=== PATIENT | male | born 1950 | race Caucasian/White ===

== ENCOUNTER 2017-11-02 16:01 | Emergency (ER) | payer MEDICARE ==
--- NOTE | 2017-11-02 16:22 | ED ---
Complex/Multi-Sys Presentation - HPI Summary HPI Summary: This is scribe Cristian Pratt documenting for attending Vinh Lee MD. A 66 y/o male ANN accompanied by family presents to ED c/o low blood sugar. In the ED room, the patient has a pulse of 104 BPM, O2 saturation of 96% and blood pressure of 150/89. Currently, the patient is feeling better. According to the patient, all he remembers is that his blood-glucose was low and remember EMS bringing him here to [facility] [place] [facility] ED. He does recall however, getting up in the morning and eating. He also remembers eating lunch and can recall the meal he had. He also noted that he takes insulin at night and recalled his blood-glucose being 120 this morning. Pt denies any congestion, urinary symptoms, cough or any appetite changes. It was noted by family that patient had recent scope down his throat which revealed pollops and he was put on antibiotics for something bacterial approximately 1 month ago. It was additionally noted that the patient wasd dry heaving, had abdominal pain and sleep apnea this morning. PMHx of DM and gastroenteritis. I, Dr. Lee, personally performed the services described in this documentation as scribed in my presence and it is both accurate and complete. - History Of Current Complaint Time Seen by Provider: 11/02/17 16:14 Hx Obtained From: Patient Onset/Duration: Sudden Onset, Lasting Hours, Still Present Timing: Constant Severity Currently: None Location: Negative Aggravating Factor(s): NOTHING Alleviating Factor(s): NOTHING Associated Signs And Symptoms: Positive: Abdominal Pain - Allergies/Home Medications Allergies/Adverse Reactions: Allergies Allergy/AdvReac Type Severity Reaction Status Date / Time No Known Allergies Allergy Verified 11/02/17 16:28 Home Medications: Home Medications Aspirin EC TAB* [Ecotrin EC Low Dose 81 MG*] 81 mg PO DAILY 11/02/17 [History Confirmed 11/02/17] Gabapentin TAB(NF) [Neurontin 600 mg TAB(NF)] 600 mg PO TID 11/02/17 [History Confirmed 11/02/17] Glucosamine Sulfate 500 mg PO TID 11/02/17 [History Confirmed 11/02/17] HYDROcodone/ACETAMIN 5-325 MG* [[place] 5-325 TAB*] 1 - 2 tab PO Q4H PRN 11/02/17 [History Confirmed 11/02/17] Lisinopril TAB* [Prinivil TAB*] 10 mg PO DAILY 11/02/17 [History Confirmed 11/02] Pioglitazone HCl [Actos] 45 mg PO DAILY 11/02/17 [History Confirmed 11/02/17] Simvastatin (NF) [Zocor (NF)] 80 mg PO DAILY 11/02/17 [History Confirmed ] glipiZIDE [Glipizide ER] 5 mg PO DAILY 11/02/17 [History Confirmed 11/02/17] glipiZIDE [Glipizide ER] 10 mg PO DAILY 11/02/17 [History Confirmed 11/02/17] metFORMIN* [Glucophage 1000 MG TAB *] 1,000 mg PO BEDTIME 11/02/17 [History Confirmed 11/02/17] metFORMIN* [Glucophage 1000 MG TAB *] 1,500 mg PO QAM 11/02/17 [History Confirmed 11/02/17] PMH/Surg Hx/FS Hx/Imm Hx Endocrine/Hematology History: Reports: Hx Diabetes Denies: Hx Thyroid Disease Cardiovascular History: Reports: Hx Hypercholesterolemia, Hx Hypertension Denies: Hx Pacemaker/ICD, Hx Peripheral Vascular Disease GI History: Reports: Hx Gastroesophageal Reflux Disease Musculoskeletal History: Reports: Hx Arthritis - knees, back, Hx Back Problems Denies: Hx Osteoporosis Sensory History: Reports: Hx Contacts or Glasses Denies: Hx Cataracts, Hx Glaucoma, Hx Hearing Aid Opthamlomology History: Reports: Hx Contacts or Glasses Denies: Hx Cataracts, Hx Glaucoma Neurological History: Reports: Other Neuro Impairments/Disorders - PAIN CLINIC PT Denies: Hx Headaches, Hx Seizures, Hx Transient Ischemic Attacks (TIA) Psychiatric History: Denies: Hx Anxiety, Hx Depression, Hx Panic Disorder - Surgical History Surgery Procedure, Year, and Place: HERNIA, BONE SPUR NECK; Tonsillectomy - Family History Known Family History: Positive: Diabetes - Social History Alcohol Use: None Alcohol Amount: had a beer at [place] Substance Use Type: Reports: None Substance Use Comment - Amount & Last Used: jorge albertoco Smoking Status (MU): Former Smoker Type: Cigarettes Have You Smoked in the Last Year: No Review of Systems Positive: Other - POSITIVE: Low blood-glucose Positive: Abdominal Pain, Vomiting - Dry heaving. All Other Systems Reviewed And Are Negative: Yes Physical Exam - Summary Physical Exam Summary: Appearance: The patient is well-nourished in no acute distress and in no acute pain. Skin: The skin is warm and dry and skin color reflects adequate perfusion. HEENT: The head is normocephalic and atraumatic. The pupils are equal and reactive. The conjunctivae are clear and without drainage. Nares are patent and without drainage. Mouth reveals moist mucous membranes and the throat is without erythema and exudate. The external ears are intact. The ear canals are patent and without drainage. The tympanic membranes are intact. Neck: The neck is supple with full range of motion and non-tender. There are no carotid bruits. There is no neck vein distension. Respiratory: Chest is non-tender. Lungs are clear to auscultation and breath sounds are symmetrical and equal. Cardiovascular: Heart is regular rate and rhythm. There is no murmur or rub auscultated. There is no peripheral edema and pulses are symmetrical and equal. Abdomen: The abdomen is soft and non-tender. There are normal bowel sounds heard in all four quadrants and there is no organomegaly palpated. Musculoskeletal: There is no back tenderness noted. Extremities are non-tender with full range of motion. There is good capillary refill. Pedal edema on both ankles. Neurological: Patient is alert and oriented to person, place and time. The patient has symmetrical motor strength in all four extremities. Cranial nerves are grossly intact. Deep tendon reflexes are symmetrical and equal in all four extremities. Psychiatric: The patient has an appropriate affect and does not exhibit any anxiety or depression. Triage Information Reviewed: Yes Vital Signs Reviewed: Yes Diagnostics - Laboratory Result Diagrams: 11/02/17 16:53 11/02/17 16:53 Lab Statement: Any lab studies that have been ordered have been reviewed, and results considered in the medical decision making process. - Radiology CXR Radiology Interpretation Completed By: Radiologist - NO ACTIVE DISEASE. ED physician reviewed this radiology report. - EKG 1626 Cardiac Rate: Tachycardia - 105 BPM EKG Rhythm: Sinus Tachycardia Complex Multi-Symp Course/Dx Course Of Treatment: Mr. Reilly presented after losing consciousness at home. His felt that he was in pain as he was writhing around gripping his stomach. The ambulance found his blood sugar to be quite low and gave him an amp of D50 which resolved all his symptomatology. He was observed here, had a meal and had normal vital signs, labs and monitor. - Diagnoses Provider Diagnoses: Hypoglycemia Discharge - Sign-Out/Discharge Documenting (check all that apply): Patient Departure - DISCHARGE - Discharge Plan Condition: Stable Disposition: HOME Patient Education Materials: What to Do if Your Blood Sugar is Low (ED), How to Check your Blood Sugar (ED) Referrals: Francisco Javier Delarosa MD [Primary Care Provider] - 3 Days Additional Instructions: FOLLOW UP WITH PRIMARY CARE IN 2-3 DAYS. RETURN TO ED FOR ANY NEW OR WORSENING SYMPTOMS. - Billing Disposition and Condition Condition: STABLE Disposition: Home
--- NOTE | 2017-11-02 16:50 | RAD ---
INDICATION: Hypoglycemia COMPARISON: None TECHNIQUE: An AP portable view obtained at 1638 hours is submitted. FINDINGS: Bones/Soft Tissues: There are no acute bony findings. Cardiomediastinal: The cardiomediastinal silhouette is normal. Lungs: There are no infiltrates. Pleura: There are no pleural effusions. Other: None IMPRESSION: NO ACTIVE DISEASE.
[2017-11-02 17:05] LABS: ABS Basophils 0 10^3/ul (0-0.2); ABS Eosinophils 0.1 10^3/ul (0-0.6); ABS Lymphocytes 0.9 10^3/ul (1.0-4.8); ABS Monocytes 0.4 10^3/ul (0-0.8); ABS Neutrophils 4.1 10^3/ul (1.5-7.7); ABS Nucleated RBC 0 10^3/ul; Eosinophil % 2.2 % (0-6); Hematocrit 36 % (42-52); Hemoglobin 11.8 g/dl (14.0-18.0); Mean Corpuscular HGB Conc 32 g/dl (31-36); Mean Corpuscular Hemoglobin 28 pg (27-31); Mean Corpuscular Volume 88 fL (80-94); Mean Platelet Volume 7.9 um3 (7.4-10.4); Nucleated Red Blood Cells % 0.1; Platelet Count 345 10^3/ul (150-450); Red Blood Count 4.15 10^6/ul (4.00-5.40); Red Cell Distribution Width 16 % (10.5-15); White Blood Count 5.6 10^3/ul (3.5-10.8)
[2017-11-02 17:10] LABS: INR 0.99 (0.77-1.02)
[2017-11-02 17:22] LABS: EGFR Non-African American 75.9 (>60)
[2017-11-02 18:41] VITALS: BP 141/87
== END 2017-11-02 18:42 | disposition home or self-care (01) ==
LOC: ED 16:01
DX: E11.649 Type 2 diabetes mellitus with hypoglycemia without coma (principal); R00.0 Tachycardia, unspecified; I10 Essential (primary) hypertension; K52.9 Noninfective gastroenteritis and colitis, unspecified; Z79.84 Long term (current) use of oral hypoglycemic drugs; Z79.899 Other long term (current) drug therapy; Z87.891 Personal history of nicotine dependence
CPT/HCPCS: 36415; 71045; 80053; 82803; 83605; 84484; 85025; 85610; 86140; 93005; 99283

== ENCOUNTER 2022-10-06 17:15 | Inpatient (IN) ==
[2022-10-06 20:25] LABS: ABS Lymphocytes 0.7 10^3/uL (1.0-4.8); ABS Monocytes 0.4 10^3/uL (0.0-1.1); ABS Neutrophils 7.4 10^3/uL (1.5-7.6); ABS Nucleated RBC 0.01 10^3/ul; Hematocrit 42.6 % (38-53); Hemoglobin 13.7 g/dL (13.2-16.3); Lymphocyte % 8.4 %; Mean Corpuscular Hemoglobin 26.6 pg (27-33); Mean Corpuscular Hgb Conc 32.1 g/dL (31-36); Mean Corpuscular Volume 82.8 fL (80-97); Nucleated Red Blood Cells % 0.1 /100 WBC (0.0-0.4); Platelet Count 288 10^3/uL (150-450); Red Blood Count 5.15 10^6/uL (4.06-5.63); Red Cell Distribution Width 20.4 % (12-17); White Blood Count 8.6 10^3/uL (3.6-10.2)
[2022-10-06 20:39] LABS: Albumin 3.7 g/dL (3.2-5.2); Calcium 9.3 mg/dL (8.6-10.3); Chloride 86 mmol/L (101-111); Sodium 126 mmol/L (135-145)
[2022-10-06 20:45] LABS: ALT 11 U/L (7-52); Alkaline Phosphatase 170 U/L (35-149); Blood Urea Nitrogen 51 mg/dL (6-24); C Reactive Protein 14.18 mg/L (<8.01); Creatinine, Serum 1.66 mg/dL (0.67-1.17); Globulin 3.8 g/dL (2-4); Total Protein 7.5 g/dL (6.4-8.9); eGFR CKD-EPI 44.1 (>60)
[2022-10-06 21:01] LABS: Anion Gap 27 mmol/L (2-16); CO2 Carbon Dioxide 13 mmol/L (22-32); Glucose 827 mg/dL (70-100)
[2022-10-06] MEDS ORDERED: Dextrose 50% Syringe 50 ml 25 GM/50 ML SYRINGE IV PUSH PRN (21:02)
[2022-10-06] MEDS ORDERED: NORMOSOL-R pH 7.4 1000 mL BAG 1,000 ML IV ONE (21:02)
[2022-10-06 22:00] LABS: Cholesterol 261 mg/dL; HDL Cholesterol 56.6 mg/dL; LDL Cholesterol 147 mg/dL; Triglycerides 287 mg/dL
[2022-10-06] MEDS ORDERED: Insulin Infusion 100unit/100mL 100 UNIT/100 ML BAG IV SCH ×2 (22:00)
[2022-10-06] MEDS ORDERED: NS 0.45% 1000 ml BAG 1,000 ML IV SCH (22:00)
[2022-10-06 22:11] LABS: Urine Appearance Cloudy; Urine Bilirubin Negative (Negative); Urine Blood Negative (Negative); Urine Color Straw; Urine Glucose 3+(>=500 mg/dL) (Negative); Urine Ketones 1+ (Negative); Urine Nitrite Negative (Negative); Urine Protein Negative (Negative); Urine Specific Gravity 1.024 (1.002-1.030); Urine Urobilinogen Negative (Negative)
[2022-10-06] MEDS ORDERED: NORMOSOL-R pH 7.4 1000 mL BAG 1,000 ML IV SCH (23:00)
[2022-10-06 23:57] LABS: Calcium 9.3 mg/dL (8.6-10.3); Creatinine, Serum 1.48 mg/dL (0.67-1.17); Magnesium 2.2 mg/dL (1.9-2.7); Phosphorus 4.2 mg/dL (2.5-5.0); Potassium 5.3 mmol/L (3.5-5.0); eGFR CKD-EPI 50.6 (>60)
[2022-10-07] MEDS ORDERED: Dextrose 50% Syringe 50 ml 25 GM/50 ML SYRINGE IV PUSH PRN ×3 (00:09→23:49)
[2022-10-07] MEDS ORDERED: Insulin Infusion 100unit/100mL 100 UNIT/100 ML BAG IV SCH ×2 (01:00→02:23)
[2022-10-07] MEDS: Pantoprazole VIAL 40 MG VIAL IV SCH ×2 (01:06→22:24)
[2022-10-07] MEDS: Ondansetron 4 mg VIAL 2 MG/ML 2 ml VIAL IV PRN ×3 (01:06→23:05)
[2022-10-07] MEDS: Enoxaparin 40 MG/0.4 ML SYR SUBCUT SCH ×2 (01:06→22:23)
[2022-10-07 03:22] LABS: Venous Bicarbonate HCO3 25.8 mmol/L (24-28)
[2022-10-07] MEDS: D5W 1/2 NS 1000 ml BAG 1,000 ML IV SCH ×2 (03:31→10:14)
[2022-10-07] MEDS: Prochlorperazine 5 mg/ml 2 ml VIAL (10 mg) IV PRN ×2 (03:31→13:39)
[2022-10-07 03:41] LABS: Creatinine, Serum 1.43 mg/dL (0.67-1.17); Magnesium 1.9 mg/dL (1.9-2.7); Phosphorus 2.5 mg/dL (2.5-5.0); Potassium 4.2 mmol/L (3.5-5.0); eGFR CKD-EPI 52.7 (>60)
[2022-10-07 07:34] LABS: Venous Bicarbonate HCO3 31.5 mmol/L (24-28)
[2022-10-07 07:51] LABS: Calcium 8.6 mg/dL (8.6-10.3); Creatinine, Serum 1.26 mg/dL (0.67-1.17); Magnesium 1.9 mg/dL (1.9-2.7); Phosphorus 2.5 mg/dL (2.5-5.0); Potassium 3.7 mmol/L (3.5-5.0); eGFR CKD-EPI 61.4 (>60)
[2022-10-07] MEDS ORDERED: Insulin NPH 100 units/ml SUBCUT ONE (08:12)
[2022-10-07] MEDS ORDERED: KCL 10 MEQ/50 ML IVPREMIX 10 MEQ/50 ML BAG IV SCH (09:00)
[2022-10-07] MEDS ORDERED: Potassium EFFERVES 25 meq TAB PO ONE (09:41)
[2022-10-07 11:07] LABS: Venous Bicarbonate HCO3 28.9 mmol/L (24-28)
[2022-10-07 11:24] LABS: Calcium 8.3 mg/dL (8.6-10.3); Creatinine, Serum 1.15 mg/dL (0.67-1.17); Magnesium 1.6 mg/dL (1.9-2.7); Potassium 4.1 mmol/L (3.5-5.0); eGFR CKD-EPI 68.5 (>60)
[2022-10-07] MEDS ORDERED: Insulin GLARGINE 100 un/ml 10 ml VIAL SUBCUT PRN (17:23)
[2022-10-07] MEDS ORDERED: Insulin GLARGINE 100 un/ml 10 ml VIAL SUBCUT SCH (19:00)
[2022-10-08] MEDS ORDERED: Dextrose 50% Syringe 50 ml 25 GM/50 ML SYRINGE IV PUSH PRN ×2 (12:53→17:33)
[2022-10-08 17:09] LABS: Glucose Confirmatory 469 mg/dL (70-100)
[2022-10-08] MEDS ORDERED: Insulin GLARGINE 100 un/ml 10 ml VIAL SUBCUT SCH (21:00)
[2022-10-08] MEDS: Pantoprazole VIAL 40 MG VIAL IV SCH (22:00)
[2022-10-08] MEDS: Enoxaparin 40 MG/0.4 ML SYR SUBCUT SCH (22:02)
[2022-10-09] MEDS ORDERED: Lidocaine PATCH 5% PATCH TRANSDERM ONE (04:28)
[2022-10-09] MEDS ORDERED: Acetaminophen IV 1 GM/100ML 1,000 MG/100 ML BAG IV ONE (04:28)
[2022-10-09 07:08] LABS: Blood Urea Nitrogen 20 mg/dL (6-24); CO2 Carbon Dioxide 25 mmol/L (22-32); Calcium 7.8 mg/dL (8.6-10.3); Chloride 96 mmol/L (101-111); Creatinine, Serum 1.12 mg/dL (0.67-1.17); Glucose 265 mg/dL (70-100); Sodium 131 mmol/L (135-145); eGFR CKD-EPI 70.7 (>60)
[2022-10-09 07:16] LABS: Hematocrit 34.4 % (38-53); Hemoglobin 11.5 g/dL (13.2-16.3); Mean Corpuscular Hemoglobin 26.8 pg (27-33); Mean Corpuscular Hgb Conc 33.5 g/dL (31-36); Mean Corpuscular Volume 80.1 fL (80-97); Mean Platelet Volume 8.3 fL (7.5-11.2); Platelet Count 182 10^3/uL (150-450); Red Blood Count 4.29 10^6/uL (4.06-5.63); Red Cell Distribution Width 20.6 % (12-17); White Blood Count 5.1 10^3/uL (3.6-10.2)
[2022-10-09 08:35] LABS: ALT 13 U/L (7-52); Albumin 2.8 g/dL (3.2-5.2); Alkaline Phosphatase 134 U/L (35-149); Globulin 2.7 g/dL (2-4); Total Protein 5.5 g/dL (6.4-8.9)
[2022-10-09 10:35] LABS: Anion Gap 10 mmol/L (2-16)
[2022-10-09 12:47] LABS: Potassium Redraw 4.4 mmol/L (3.5-5.0); Total Bilirubin 0.4 mg/dL (0.2-1.0)
[2022-10-09 12:48] LABS: Glucose Confirmatory 416 mg/dL (70-100)
[2022-10-09] MEDS ORDERED: Dextrose 50% Syringe 50 ml 25 GM/50 ML SYRINGE IV PUSH PRN (13:29)
[2022-10-09 14:57] LABS: Hematocrit 36.9 % (38-53); Mean Corpuscular Hemoglobin 26.2 pg (27-33); Mean Corpuscular Hgb Conc 32.5 g/dL (31-36); Mean Corpuscular Volume 80.7 fL (80-97); Mean Platelet Volume 8.4 fL (7.5-11.2); Platelet Count 218 10^3/uL (150-450); Red Blood Count 4.57 10^6/uL (4.06-5.63); Red Cell Distribution Width 19.7 % (12-17); White Blood Count 6.7 10^3/uL (3.6-10.2)
[2022-10-09 16:07] VITALS: BP 140/57
== END 2022-10-09 17:35 | disposition home or self-care (01) | DRG 639 ==
LOC: ED 17:15 → SUATTDRO 21:38 → EDHOLD 21:38 → ICU 22:54 → MEDTELE 10-07 19:28
PROVIDERS: ADMIT Hospitalist; ATTEND Internal Medicine